=== PATIENT | male | born 1955 | race Caucasian/White ===

== ENCOUNTER 2021-12-27 09:47 | Emergency (ER) | payer MEDICARE, OTHER ==
[2021-12-27 11:15] LABS: BASOPHIL 0.4 % (0-2); EOSINOPHIL 1.6 % (0-7); HCT 44.8 % (42.0-52.0); HGB 14.6 g/dl (13.2-18.0); LYMPHOCYTE 11.6 % (15-48); MCH 33.2 pg (25.0-31.0); MCHC 32.6 g/dL (32.0-36.0); MCV 101.8 fL (78.0-100.0); MONOCYTE 10.7 % (0-12); MPV 12.5 fL (6.0-9.5); NEUTROPHIL 73.7 % (41-80); NRBC 0; PLT 156 K/uL (150-400); RDW 13.3 % (11.5-14.0); WBC 11.2 K/uL (4.0-10.5)
[2021-12-27 11:24] LABS: BUN/CREAT RATIO (CALC) 16.1 RATIO; CREATININE 1.12 mg/dL (0.67-1.17); POTASSIUM 4.3 mmol/L (3.5-5.1)
[2021-12-27] MEDS ORDERED: KEFLEX250 MG PO (11:47)
== END 2021-12-27 12:58 | disposition home or self-care (01) ==
LOC: FER 09:47
PROVIDERS: Emergency Medicine
DX: L03.114 Cellulitis of left upper limb (principal); E11.9 Type 2 diabetes mellitus without complications; I10 Essential (primary) hypertension; F17.210 Nicotine dependence, cigarettes, uncomplicated; Z79.899 Other long term (current) drug therapy
CPT/HCPCS: 36415; 80048; 85025; 87040; J0690